=== PATIENT | female | born 1980 | race Caucasian/White ===

== ENCOUNTER 2019-05-01 13:13 | Emergency (ER) | payer MEDICARE, MEDICAID ==
[~2019-05-01] VITALS: Ht 157.5 cm; Wt 90.3 kg
[~2019-05-01 13:13] MED LIST changes: -RIVA15TA PO
[2019-05-01 14:21] LABS: BASO # 0.1 x10^3/uL (0.0-0.2); BASO % 1 % (0-3); EOS # 0.2 x10^3/uL (0.0-0.7); EOS % 3 % (0-3); HEMATOCRIT 39.9 % (36.0-47.0); HEMOGLOBIN 13.4 g/dL (12.0-15.5); LYMPH # 2.3 x10^3/uL (1.0-4.8); LYMPH % 28 % (24-48); MEAN CORPUSCULAR HEMOGLOBIN 30 pg (25-35); MEAN CORPUSCULAR HGB CONC 34 g/dL (31-37); MEAN CORPUSCULAR VOLUME 89 fL (79-100); MONO # 0.7 x10^3/uL (0.0-1.1); MONO % 9 % (0-9); NEUT # 4.9 x10^3/uL (1.8-7.7); NEUT % 60 % (31-73); PLATELET COUNT 373 x10^3/uL (140-400); WHITE BLOOD COUNT 8.3 x10^3/uL (4.0-11.0)
[2019-05-01 14:24] LABS: CALCIUM 9.5 mg/dL (8.5-10.1); CREATININE 0.9 mg/dL (0.6-1.0); GFR 69.7
[2019-05-01 14:28] LABS: PROTHROMBIN TIME PATIENT 12.7 SEC (11.7-14.0)
[2019-05-01 14:31] LABS: ALBUMIN 3.5 g/dL (3.4-5.0); ALBUMIN/GLOBULIN RATIO 0.8 (1.0-1.7); TOTAL BILIRUBIN 0.3 mg/dL (0.2-1.0); TOTAL PROTEIN 7.7 g/dL (6.4-8.2)
[2019-05-01 14:40] VITALS: BP 138/70
[2019-05-01] MEDS ORDERED: RIVAROXABAN 15 MG TABLET. PO STA (14:49)
[2019-05-01] MEDS ORDERED: RIVA15TA PO (15:17)
--- NOTE | 2019-05-01 15:18 | PHYS DOC ---
Past Medical History Past Medical History: Bipolar, Hypothyroid, Other Additional Past Medical Histor: deaf Past Surgical History: No Surgical History Additional Past Surgical Histo: nasal surgery, cochlear implant Alcohol Use: None Drug Use: None Adult General Chief Complaint Chief Complaint: LOWER EXT PAIN HPI HPI Patient is a 38-year-old female with history of bipolar more very hard on here and basically using sign language who presents to the ED today from a doctor's o ffice after being diagnosed with DVT in the left lower extremity. Patient states her risk factors were smoking and control use. She states she's had left lower extremity cramping like pain mild and intermittent for 2 weeks hence the reason she went to the doctor's office today. Denies any chest pain or shortness of breath Review of Systems Review of Systems Constitutional: Denies fever or chills [] Eyes: Denies change in visual acuity, redness, or eye pain [] HENT: Denies nasal congestion or sore throat [] Respiratory: Denies cough or shortness of breath [] Cardiovascular: No additional information not addressed in HPI [] GI: Denies abdominal pain, nausea, vomiting, bloody stools or diarrhea [] : Denies dysuria or hematuria [] Musculoskeletal: Reports DVT to the left lower extremity Integument: Denies rash or skin lesions [] Neurologic: Denies headache, focal weakness or sensory changes [] All other systems were reviewed and found to be within normal limits, except as documented in this note. Current Medications Current Medications Current Medications Medications (Trade) Dose Ordered Sig/Heber Start Time Stop Time Status Last Admin Dose Admin Rivaroxaban (Xarelto) 15 mg 1X STAT 05/01/19 14:49 05/01/19 14:53 DC 05/01/19 15:10 15 MG Allergies Allergies Allergies Coded Allergies Type Severity Reaction Last Updated Verified Penicillins Allergy Intermediate hives, itching 07/14/14 Yes Physical Exam Physical Exam Constitutional: Well developed, well nourished, no acute distress, non-toxic appearance. [] HENT: Normocephalic, atraumatic, bilateral external ears normal, oropharynx moist, no oral exudates, nose normal. Patient has a hearing aid, using sign language very hard of hearing Eyes: PERRLA, EOMI, conjunctiva normal, no discharge. [] Neck: Normal range of motion, no tenderness, supple, no stridor. [] Cardiovascular:Heart rate regular rhythm, no murmur [] Lungs & Thorax: Bilateral breath sounds clear to auscultation [] Abdomen: Bowel sounds normal, soft, no tenderness, no masses, no pulsatile masses. [] Skin: Warm, dry, no erythema, no rash. [] Back: No tenderness, no CVA tenderness. [] Extremities: Left lower extremity with mild swelling and appears began on the right lower extremity. Positive Homans sign to the left lower extremity. +2 left pedal pulse. Cap refill less than 2 seconds lower extremity. Neurologic: Alert and oriented X 3, normal motor function, normal sensory function, no focal deficits noted. [] Psychologic: Affect normal, judgement normal, mood normal. [] Current Patient Data Vital Signs Vital Signs Date Time Temp Pulse Resp B/P (MAP) Pulse Ox O2 Delivery O2 Flow Rate FiO2 05/01/19 13:42 98.2 83 16 129/70 (89) 95 Room Air 98.2 Lab Values Laboratory Tests Test 05/01/19 14:00 White Blood Count 8.3 x10^3/uL (4.0-11.0) Red Blood Count 4.50 x10^6/uL (3.50-5.40) Hemoglobin 13.4 g/dL (12.0-15.5) Hematocrit 39.9 % (36.0-47.0) Mean Corpuscular Volume 89 fL (79-100) Mean Corpuscular Hemoglobin 30 pg (25-35) Mean Corpuscular Hemoglobin Concent 34 g/dL (31-37) Red Cell Distribution Width 13.0 % (11.5-14.5) Platelet Count 373 x10^3/uL (140-400) Neutrophils (%) (Auto) 60 % (31-73) Lymphocytes (%) (Auto) 28 % (24-48) Monocytes (%) (Auto) 9 % (0-9) Eosinophils (%) (Auto) 3 % (0-3) Basophils (%) (Auto) 1 % (0-3) Neutrophils # (Auto) 4.9 x10^3/uL (1.8-7.7) Lymphocytes # (Auto) 2.3 x10^3/uL (1.0-4.8) Monocytes # (Auto) 0.7 x10^3/uL (0.0-1.1) Eosinophils # (Auto) 0.2 x10^3/uL (0.0-0.7) Basophils # (Auto) 0.1 x10^3/uL (0.0-0.2) Prothrombin Time 12.7 SEC (11.7-14.0) Prothrombin Time INR 1.0 (0.8-1.1) Activated Partial Thromboplast Time 28 SEC (24-38) Sodium Level 138 mmol/L (136-145) Potassium Level 4.0 mmol/L (3.5-5.1) Chloride Level 103 mmol/L (98-107) Carbon Dioxide Level 26 mmol/L (21-32) Anion Gap 9 (6-14) Blood Urea Nitrogen 12 mg/dL (7-20) Creatinine 0.9 mg/dL (0.6-1.0) Estimated GFR (Cockcroft-Gault) 69.7 BUN/Creatinine Ratio 13 (6-20) Glucose Level 85 mg/dL (70-99) Calcium Level 9.5 mg/dL (8.5-10.1) Total Bilirubin 0.3 mg/dL (0.2-1.0) Aspartate Amino Transferase (AST) 22 U/L (15-37) Alanine Aminotransferase (ALT) 74 U/L (14-59) H Alkaline Phosphatase 60 U/L (46-116) Total Protein 7.7 g/dL (6.4-8.2) Albumin 3.5 g/dL (3.4-5.0) Albumin/Globulin Ratio 0.8 (1.0-1.7) L Laboratory Tests 05/01/19 14:00 Laboratory Tests 05/01/19 14:00 EKG EKG [] Radiology/Procedures Radiology/Procedures [] Course & Med Decision Making Course & Med Decision Making Pertinent Labs and Imaging studies reviewed. (See chart for details) This is a 38-year-old female patient presents to the ED today to be evaluated after being diagnosed with DVT as an outpatient. Patient's risk factors include smoking and control use. She was advised to stop the control and use an alternative method. She was advised to consider smoking cessation. I spoke to the hospitalist Dr. Marquez who recommended we start patient on Xarelto and D/c home with the same. office technologist was used during this visit Dragon Disclaimer Alonso Disclaimer This electronic medical record was generated, in whole or in part, using a voice recognition dictation system. Departure Departure Impression: Primary Impression: Left leg DVT Additional Impression: Smoking addiction Disposition: 01 HOME, SELF-CARE Condition: STABLE Referrals: ELLA CALVIN MD (PCP) Follow-up with the primary care doctor in 2-4 days Patient Instructions: Deep Vein Thrombosis, Smoking Cessation Additional Instructions: You were evaluated in the emergency room for blood clot in your left lower extremity. We put you on medications, take them as prescribed Please follow-up with your doctor in the next 2-7 days. Please consider smoking cessation Please do not take control Use alternative method eg condoms Scripts Rivaroxaban (XARELTO) 15 Mg Tablet 1 TAB PO BID for 21 Days, #42 TAB 0 Refills Prov: NETTE BARNETT APRN 05/01/19 Problem Qualifiers Primary Impression: Left leg DVT Affected thrombotic vein of extremity: popliteal Chronicity: acute Qualified Codes: I82.432 - Acute embolism and thrombosis of left popliteal vein NETTE BARNETT APRN May 01, 2019 15:18
== END 2019-05-01 15:21 | disposition home or self-care (01) ==
LOC: ER 13:13
DX: I82.432 Acute embolism and thrombosis of left popliteal vein (principal); F17.200 Nicotine dependence, unspecified, uncomplicated; F31.9 Bipolar disorder, unspecified; E03.9 Hypothyroidism, unspecified; Z88.0 Allergy status to penicillin
CPT/HCPCS: 36415; 80053; 85025; 85610; 85730; 99284

== ENCOUNTER → 2019-05-01 | Outpatient (CLI) | payer MEDICARE, MEDICAID ==
[2014-07-14 13:58] VITALS: BP 131/70
[~2019-05-01] MED LIST: ESZO3TAB28 PO; FLUO40CA9 PO; LEVO75TA5 PO; LURA40TA PO; RIVA15TA PO
--- NOTE | 2019-05-01 16:15 | RAD ---
Examination: VENOUS LOWER EXTREMITY LEFT History: Left leg pain and swelling Comparison/Correlation: None FINDINGS: Bilateral lower extremity duplex venous ultrasound exam was performed. Grayscale, color Doppler, and spectral Doppler imaging was performed. Compression and augmentation was performed. Left common femoral vein, superficial femoral vein, and great saphenous vein are patent with normal flow and compression. Occlusive thrombus involving the popliteal, peroneal, and posterior tibial veins. IMPRESSION: Occlusive left lower extremity deep venous thrombus extending from the popliteal veins and distally to the ankle. On 05/01/2019 at 412 PM, results were reported to nurse Millicent Lentz of [facility] primary care. Electronically signed by: Tim Salomon MD (05/01/2019 4:12 PM) [facility]
== END | disposition home or self-care (01) ==
LOC: US 12:26
PROVIDERS: ATTEND Nurse Practitioner
DX: I82.432 Acute embolism and thrombosis of left popliteal vein (principal); M79.89 Other specified soft tissue disorders
CPT/HCPCS: 93971